=== PATIENT | female | born 1970 ===

== ENCOUNTER → 2019-01-08 | Outpatient (CLI) | payer OTHER | END | disposition home or self-care (01) | LOC: LAB SHORT 13:49 → LAB 13:49 | PROVIDERS: Hospitalist | DX: Z12.4 Encounter for screening for malignant neoplasm of cervix (principal) | CPT/HCPCS: G0145 ==

== ENCOUNTER → 2020-04-20 | Outpatient (CLI) | payer OTHER | LOC: LAB 09:10 → LAB SHORT 09:10 | PROVIDERS: Hospitalist | DX: Z12.4 Encounter for screening for malignant neoplasm of cervix (principal); E55.9 Vitamin D deficiency, unspecified | CPT/HCPCS: 82306; 88175 ==